=== PATIENT | female | born 1965 | race Caucasian/White ===

== ENCOUNTER 2016-07-30 17:00 | Inpatient (IN) | payer MEDICAID ==
--- NOTE | 2016-07-30 17:45 | ERNOTE ---
Integumentary HPI - Narrative Date of Service: 07/30/16 - General Presenting Symptoms: rash Time Seen by Provider: 07/30/16 17:44 Source: patient - Immun/Allergies/Home Medications Immunizations: IMMUNIZATION HX Immunizations Up to Date Yes History of Influenza Vaccine More Information Required Hx Pneumococcal Vaccination More Information Required Allergies/Adverse Reactions: Allergies Allergy/AdvReac Type Severity Reaction Status Date / Time No Known Allergies Allergy Verified 07/30/16 17:25 Home Medications: HOME MEDICATIONS Insulin Detemir [Levemir Flexpen] 50 unit SQ BID 07/18/14 [Last Taken 08/17/14] Insulin NPH Hum/Reg Insulin Hm [Humulin 70-30] 10 unit SC AC 11/02/15 [Last Taken Unknown] - History of Present Illness Date (Duration): 07/28/16 Location: Reports: lower extremity Quality: Reports: burning, other - erythema Severity: moderate Exposure: Reports: no cause identified Associated Symptoms: Reports: fever Review of Systems - Review of Systems Constitutional: Present: See HPI, fever, chills EYE: Present: no symptoms reported ENT: Present: no symptoms reported Respiratory: Present: no symptoms reported Cardiology: Present: no symptoms reported Gastrointestinal/Abdominal: Present: no symptoms reported Genitourinary: Present: no symptoms reported Musculoskeletal: Present: no symptoms reported Skin: Present: See HPI, rash Neurological: Present: no symptoms reported Endocrine: Present: no symptoms reported Hematologic/Lymphatic: Present: no symptoms reported Psych: Present: no symptoms reported - Patient's Past Medical History Patient History - Medical: Diabetes Type 1, Other - Necrotizing fasciitis; Peripheral vascular disease; Diabetic neuropathy Patient History - Cardiac/Respiratory: No pertinent hx Patient History - Cancer: Skin Patient History - Surgical Procedures: Appendectomy, , EGD, Other - Osteotomy; Skin graft; Colostomy; Uterine ablation - Social History Living Situations: home Alcohol Use: none Drug Use: none Physical Exam - Physical Exam General Appearance: Present: wd/wn, alert, moderate distress Eye Exam: Normal inspection: bilateral, PERRL: bilateral Ears, Nose, Throat: Present: normal ENT inspection, hearing grossly normal, normal pharynx Neck: Present: normal inspection, nontender Respiratory: Present: no respiratory distress, normal breath sounds, no accessory muscle use, chest nontender, lungs clear Cardiovascular/Chest: Present: regular rate, rhythm, no murmur, normal peripheral pulses Gastrointestinal/Abdominal: Present: normal bowel sounds, nontender, nondistended, soft, no organomegaly Rectal Exam: Present: deferred Back Exam: Present: normal inspection, normal range of motion Extremity Exam: Present: normal inspection, non-tender, no edema, normal range of motion Neurological Exam: Present: alert, oriented, normal mood/affect Skin Exam: Present: other - erythema LLE Lymphatic Exam: Present: no adenopathy ED Progress - Results and Orders Patient's Lab Results:: I have reviewed the patient's lab results. - Vital Signs Patient's Vital Signs:: I have reviewed the patient's vital signs. Vital Signs: Vital Signs 07/30/16 17:21 Temperature 38.0 C H Pulse Rate 98 Respiratory 14 Rate Blood Pressure 137/69 O2 Sat by Pulse 97 Oximetry - Progress/Reassessment Chief Complaint: Cellulitis Progress:: Unchanged - Transfer of Care Expected Disposition: Admit Plan - Plan Plan: Pt will need to be admitted for aggressive antibiotic treatment given her history of necrotizing fasciitis. Departure Clinical Impression: Cellulitis - Departure Disposition: [facility] Condition: Fair
[2016-07-30 17:59] LABS: Hematocrit 42.8 % (37.0-47.0); Mean Cell Volume 80.6 fl (78-100); Mean Corpuscular Hemoglobin 26.4 pg (27-31); Mean Corpuscular Hgb Conc 32.7 g/dl (32-36); Mean Platelet Volume 9.7 fl (6.0-9.5); Platelet Count 230 K/mm3 (150-450); Red Blood Count 5.31 M/mm3 (4.2-5.4); Red Cell Distribution Width 13.2 % (11.5-14.0); White Blood Count 24.4 K/mm3 (4.0-10.5)
[2016-07-30 18:03] LABS: Total Cells Counted 100
[2016-07-30 18:14] LABS: ALT 19 U/L (19-67); AST 10 U/L (0-48); Albumin * 3.8 gm/dl (3.4-5.0); Alkaline Phosphatase * 124 U/L (50-170); Anion Gap 15.8 mmol/L (6.8-13.8); BUN/Creatinine Ratio 18.5 (9.0-21.6); Bilirubin, Total 0.9 mg/dL (0.0-1.1); Blood Urea Nitrogen 20 mg/dL (3-23); Ca. Corrected For Albumin 9.8 mg/dL (8.4-10.2); Carbon Dioxide 27.6 mmol/L (24-32.6); Chloride 94 mmol/L (97-106); Glucose * 417 mg/dL (70-110); Potassium 4.4 mmol/L (3.4-4.6); Sodium 133 mmol/L (132-142); Total Protein 8.9 gm/dL (6.2-8.2)
[2016-07-30 18:28] LABS: Atypical (Reactive) Lymph 3 % (0-2); Band 1 % (0-2.0); Lymphocyte 4 % (20-51); Monocyte 8 % (0-9); Neutrophil 84 % (42-75); Neutrophil # 20.5 K/mm3 (1.3-6.0); Platelet Estimate Normal (NORMAL)
[2016-07-30 18:29] LABS: RBC Morphology Normal (NORMAL)
[2016-07-30] MEDS ORDERED: VANCOMYCIN HCL 1 GM in DEXTROSE 5 % IN WATER 250 ML IV ONE ×2 (19:20)
[2016-07-30] MEDS ORDERED: NORMAL SALINE 1,000 ML IV PRN ×2 (19:38→21:20)
--- NOTE | 2016-07-30 21:25 | HP ---
Chief Complaint - Chief Complaint Date of Service: 07/30/16 Time of Service: 21:24 Chief Complaint: Nausea, vomiting, RT leg redness & pain, chills History of Present Illness: Ms. Lyles is a 50-yr old [facility] pt who states that her PCP is Dr. Deepti Llamas in [facility]. Her PMH involves DM II, Neuropathy & Necrotizing Fasciitis. Pt reports that on Friday evening, she became ill with ' flu like symptoms' of: n/v, headaches, abd pain and diarrhea. She is unsure if she had any fevers as she never checked her temperature, but says she had chills. On Friday, she noticed a scraped area on her LT larios which was also itchy. She is uncertain how she sustained that open area. She states that she applied Bacitracin ointment on it but that seemed to worsen the itching. This morning, she noticed that the area around the scab was very red, hot and tender to touch. She then chose to come to the [facility] ER later in the afternoon. During evaluation in the ER, the UA and CXR findings were unremarkable. However, she was found to be febrile with a temp. of 38.0. Her laboratory studies showed she an elevated WBC of 24,400 with a left shift and a lactic acid of 2.1 prompting an inpatient admission for clinical signs of Sepsis. - Patient's Past Medical History Patient History - Medical: Diabetes Type 1, Diabetes Type 2, Other - Neuropathy. Patient History - Cardiac/Respiratory: No pertinent hx Patient History - Cancer: Skin Patient History - Surgical Procedures: Appendectomy, , EGD, Other - Fasciotomy of Right Thigh. LMP (females 10-50): Menopausal - Family History Mother Family History - Medical: - at 30 yr , Diabetes Type 2 Family History - Cancer: Leukemia Father Family History - Medical: , Other - Suicide. - Social History Living Situations: home Smoking Status: Former smoker Have you smoked in the past 12 months: No Do you dip or chew tobacco: No Smoking Stop Date: 07/30/10 Patient requests Smoking Cessation Consult: No Initiate information on Smoking Cessation: No Alcohol Use: none Drug Use: none Allergies/Adverse Reactions: Allergies Allergy/AdvReac Type Severity Reaction Status Date / Time No Known Allergies Allergy Verified 07/30/16 17:25 Home Medications: HOME MEDICATIONS Insulin Detemir [Levemir Flexpen] 50 unit SQ BID 07/18/14 [Last Taken 07/30/16] Insulin NPH Hum/Reg Insulin Hm [Humulin 70-30] 10 unit SC AC 11/02/15 [Last Taken 07/30/16] Exam - Exam Vital Signs: Vital Signs - Last Taken Temp 37.3 C 07/30/16 20:45 Pulse 96 07/30/16 20:45 Resp 18 07/30/16 20:45 BP 149/84 07/30/16 20:45 Pulse Ox 98 07/30/16 20:45 Diagnostic Studies: Laboratory Results WBC 24.4 K/mm3 (4.0-10.5) H 07/30/16 17:40 RBC 5.31 M/mm3 (4.2-5.4) 07/30/16 17:40 Hgb 14.0 gm/dL (12.5-16.0) 07/30/16 17:40 Hct 42.8 % (37.0-47.0) 07/30/16 17:40 MCV 80.6 fl (78-100) 07/30/16 17:40 MCH 26.4 pg (27-31) L 07/30/16 17:40 MCHC 32.7 g/dl (32-36) 07/30/16 17:40 RDW 13.2 % (11.5-14.0) 07/30/16 17:40 Plt Count 230 K/mm3 (150-450) 07/30/16 17:40 MPV 9.7 fl (6.0-9.5) H 07/30/16 17:40 Neutrophils % (Manual) 84 % (42-75) H 07/30/16 17:40 Band Neuts % (Manual) 1 % (0-2.0) 07/30/16 17:40 Lymphocytes % (Manual) 4 % (20-51) L 07/30/16 17:40 Monocytes % (Manual) 8 % (0-9) 07/30/16 17:40 Neutrophils # (Manual) 20.5 K/mm3 (1.3-6.0) H 07/30/16 17:40 Lymphocytes # (Manual) 1.0 k/mm3 (1.5-3.5) L 07/30/16 17:40 Monocytes # (Manual) 2.0 k/mm3 (0.0-1.0) H 07/30/16 17:40 Atypic/Reactive Lymphs 3 % (0-2) H 07/30/16 17:40 Platelet Estimate Normal (NORMAL) 07/30/16 17:40 RBC Morphology Normal (NORMAL) 07/30/16 17:40 Sodium 133 mmol/L (132-142) 07/30/16:40 Plasma Sodium 138 mmol/L (130-142) 07/30/16 17:40 Potassium 4.4 mmol/L (3.4-4.6) 07/30/16:40 Chloride 94 mmol/L (97-106) L 07/30/16:40 Carbon Dioxide 27.6 mmol/L (24-32.6) 07/30/16:40 Anion Gap 15.8 mmol/L (6.8-13.8) H 07/30/16 17:40 BUN 20 mg/dL (3-23) 07/30/16:40 Creatinine 1.08 mg/dL (0.4-1.4) 07/30/16:40 Est GFR (Non-Af Amer) 57 mL/min (60-130) L D 07/30/16:40 BUN/Creatinine Ratio 18.5 (9.0-21.6) 07/30/16:40 Random Glucose 417 mg/dL (70-110) H 07/30/16 17:40 Lactic Acid, Venous 2.1 mmol/L (0.4-2.0) H 07/30/16:40 Calcium 10.0 mg/dL (7.9-10.9) 07/30/16:40 Calcium Adj for Albumin 9.8 mg/dL (8.4-10.2) 07/30/16:40 Total Bilirubin 0.9 mg/dL (0.0-1.1) 07/30/16:40 AST 10 U/L (0-48) 07/30/16 17:40 ALT 19 U/L (19-67) 07/30/16 17:40 Alkaline Phosphatase 124 U/L (50-170) 07/30/16:40 C-Reactive Prot, Quant Less than 0.2 mg/dL (0.0-0.9) 07/30/16 17:40 Total Protein 8.9 gm/dL (6.2-8.2) H 07/30/16 17:40 Albumin 3.8 gm/dl (3.4-5.0) 07/30/16 17:40 Assessment/Plan - Assessment/Plan (1) Sepsis Assessment: Evidenced by SIRS Criteria - Temp, High HR, & WBC & Suspected source of infection. The CXR & UA were unremarkable. Skin examination reveals a scrapped area on LT larios with erythema & hotness on the surrounding area and this could be potential localizing source. She also has localized tenderness on two spots on her LT inner thigh which appear slightly red and raised. Blood and wound cultures are pending. Will provide early management with IVF resuscitation and initiate broad spectrum antibiotics. Monitor CBC in am. Problem: Acute (2) Cellulitis Assessment: Erythemic/inflammed area on LLE which is hot and tender to touch, with an open wound in the center. She was also febrile with a temp of 38.0. Will collect wound culture. Broad Spectrum antibiotics with Vancomycin and Zosyn appropriate for now and also bearing the fact that she also had history of necrotizing fasciitis which led to fasciotomy in February of 2015. It may be helpful to obtain an MRI of the extremity as it may aid in detection of underlying osteomyelitis. Problem: Acute (3) Diabetes mellitus Assessment: Accuchecks AC/HS. Will start on moderate dose SSI and continue Long acting insulin. Problem: Chronic Qualifiers: Diabetes mellitus type: type 2
[2016-07-30] MEDS ORDERED: INSULIN DETEMIR 100 UNITS/ML VIAL SC SCH (21:30)
[2016-07-30] MEDS ORDERED: INSULIN LISPRO 100 UNITS/ML VIAL ONE (21:31)
[2016-07-30] MEDS: HEPARIN SODIUM,PORCINE 5,000 UNITS/ML VIAL SC SCH ×2 (21:37→21:42)
[2016-07-30] MEDS: INSULIN LISPRO 100 UNITS/ML VIAL SC SCH (21:38)
[2016-07-30] MEDS: ACETAMINOPHEN 325 MG TABLET PO PRN (21:39)
[2016-07-30] MEDS: PIPERACILLIN SODIUM/TAZOBACTAM 3.375 GM in DEXTROSE 5 % IN WATER 100 ML IV SCH ×2 (22:07)
[2016-07-30 22:09] LABS: Urine Bilirubin Negative (NEGATIVE); Urine Blood 25 /ul (NEGATIVE); Urine Ketone 50 mg/dL (NEGATIVE); Urine Nitrite Negative (NEGATIVE); Urine Protein 30 mg/dL (NEGATIVE); Urine Urobilinogen Normal (NORMAL)
[2016-07-30 22:35] LABS: Urine Appearance Clear; Urine Bacteria 1+; Urine Color Yellow; Urine RBC 0-5 /hpf (0-5); Urine WBC 0-5 /hpf (0-5); Urine Yeast Few - 1+
[2016-07-31] MEDS: PIPERACILLIN SODIUM/TAZOBACTAM 3.375 GM in DEXTROSE 5 % IN WATER 100 ML IV SCH ×6 (02:11→18:42)
[2016-07-31 05:35] LABS: Hematocrit 35.7 % (37.0-47.0); Hemoglobin 11.6 gm/dL (12.5-16.0); Mean Cell Volume 81.3 fl (78-100); Mean Corpuscular Hemoglobin 26.4 pg (27-31); Mean Corpuscular Hgb Conc 32.5 g/dl (32-36); Mean Platelet Volume 9.6 fl (6.0-9.5); Platelet Count 183 K/mm3 (150-450); Red Blood Count 4.39 M/mm3 (4.2-5.4); White Blood Count 21.3 K/mm3 (4.0-10.5)
[2016-07-31] MEDS: ACETAMINOPHEN 325 MG TABLET PO PRN ×2 (05:46→12:27)
[2016-07-31 05:48] LABS: Total Cells Counted 100
[2016-07-31 05:58] LABS: BUN/Creatinine Ratio 18.3 (9.0-21.6); Calcium * 8.7 mg/dL (7.9-10.9); Carbon Dioxide 23.9 mmol/L (24-32.6); Estimated Creat Clear 79.8; Potassium 3.9 mmol/L (3.4-4.6)
[2016-07-31 06:40] LABS: Band 9 % (0-2.0); Eosinophil 1 % (0-3); Lymphocyte 7 % (20-51); Monocyte 1 % (0-9); Neutrophil 82 % (42-75); Neutrophil # 17.5 K/mm3 (1.3-6.0)
[2016-07-31 06:41] LABS: Platelet Estimate Normal (NORMAL); Toxic Granulation 2+
[2016-07-31] MEDS: INSULIN LISPRO 100 UNITS/ML VIAL SC SCH ×4 (07:13→20:08)
[2016-07-31] MEDS ORDERED: VANCOMYCIN HCL IV SCH ×2 (08:00)
[2016-07-31] MEDS ORDERED: DEXTROSE 5% IV SCH ×2 (08:00)
[2016-07-31] MEDS ORDERED: WATER IV SCH ×2 (08:00)
[2016-07-31] MEDS: VANCOMYCIN HCL 1.25 GM in DEXTROSE 5 % IN WATER 250 ML IV SCH ×4 (09:46→22:23)
[2016-07-31] MEDS: HEPARIN SODIUM,PORCINE 5,000 UNITS/ML VIAL SC SCH ×2 (09:47→20:38)
[2016-07-31] MEDS: INSULIN DETEMIR 100 UNITS/ML VIAL SC SCH ×2 (09:48→20:08)
--- NOTE | 2016-07-31 11:15 | PN ---
Subjective - Date and Time Seen Date: 07/31/16 Time: 08:00 Subjective Narrative: patient was seen today sitting up in chair ,with reports of left thigh pain that's localized in area of erythema. Pt stated a years ago she had narcotizing fasciitis on the right thigh which had presented itself in the same way. left medial leg with cellulitis that is feeling much better. She denies chills and fever. Objective - Review of Systems Generalized/Overall Review: Reports: Chills EENTM: Reports: No Symptoms Reported Respiratory: Reports: No Symptoms Reported Cardiac: Reports: No Symptoms Reported Abdominal: Reports: No Symptoms Reported Genitourinary Symptoms: Reports: No Symptoms Reported Neurological: Reports: No Symptoms Reported Skin: Reports: Other - left leg erythema Endocrine: Reports: No Symptoms Reported - Vitals Vitals: Last Vital Signs Temp 37 C 07/31/16 10:44 Pulse 84 07/31/16 10:44 Resp 18 07/31/16 10:44 BP 128/94 07/31/16 10:44 Pulse Ox 98 07/31/16 10:44 - Abnormal Lab Findings Abnormal Lab Findings: Abnormal Lab Results 07/30/16 07/30/16 07/31/16 Range/Units 20:44 22:00 05:05 WBC 21.3 H (4.0-10.5) K/mm3 Hgb 11.6 L (12.5-16.0) gm/dL Hct 35.7 L (37.0-47.0) % MCH 26.4 L (27-31) pg MPV 9.6 H (6.0-9.5) fl Neutrophils % (Manual) 82 H (42-75) % Band Neuts % (Manual) 9 H (0-2.0) % Lymphocytes % (Manual) 7 L (20-51) % Neutrophils # (Manual) 17.5 H (1.3-6.0) K/mm3 pCO2 28.7 L (32.0-45.0) mmHg HCO3 20.1 L (21.0-28.0) mmol/L Base Excess -2.5 L (-2.0-3.0) mmol/L ABG pH 7.46 H (7.35-7.45) Carbon Dioxide (24-32.6) mmol/L Anion Gap (6.8-13.8) mmol/L Random Glucose (70-110) mg/dL Urine Protein 30 H (NEGATIVE) mg/dL Urine Glucose (UA) >=1000 H (NEGATIVE) mg/dL Urine Blood 25 H (NEGATIVE) /ul Urine Bacteria 1+ H (NONE) Urine Yeast Few - 1+ H (NONE) 07/31/16 Range/Units 05:05 WBC (4.0-10.5) K/mm3 Hgb (12.5-16.0) gm/dL Hct (37.0-47.0) % MCH (27-31) pg MPV (6.0-9.5) fl Neutrophils % (Manual) (42-75) % Band Neuts % (Manual) (0-2.0) % Lymphocytes % (Manual) (20-51) % Neutrophils # (Manual) (1.3-6.0) K/mm3 pCO2 (32.0-45.0) mmHg HCO3 (21.0-28.0) mmol/L Base Excess (-2.0-3.0) mmol/L ABG pH (7.35-7.45) Carbon Dioxide 23.9 L (24-32.6) mmol/L Anion Gap 14.0 H (6.8-13.8) mmol/L Random Glucose 277 H D (70-110) mg/dL Urine Protein (NEGATIVE) mg/dL Urine Glucose (UA) (NEGATIVE) mg/dL Urine Blood (NEGATIVE) /ul Urine Bacteria (NONE) Urine Yeast (NONE) - Exam Constitutional: Present: Alert, Oriented x3, Cooperative, No distress ENT Exam: Present: normal ENT inspection Neck: Present: full range of motion Breasts: Present: Exam deferred Respiratory: Present: chest non-tender, lungs clear, normal breath sounds, no respiratory distress Cardiovascular/Chest: Present: normal peripheral pulses, regular rate, rhythm, no chest tenderness, no edema Abdomen: Present: Normal bowel sounds, soft, nontender, nondistended, no rebound tenderness /Rectal: Present: Exam deferred Extremity: Present: normal range of motion, normal capillary refill, other - left thigh localized area of erythema Skin Exam: Present: other - left leg medial aspect cellulitis, small abrasion scabbed over and surrounding area with difused erythema Lymphatic: Present: no adenopathy Neurologic: Present: oriented x 3 Appearance: Present: appropriate appearance Eye contact: Present: cooperative, good eye contact Thoughts: Present: normal thought pattern Assessment/Plan Plan Narrative: Sepsis Left medial leg cellulitis and left inner thigh erythema with pain on palpation. On adm Temp 38.0----->36.7 trending down and remain afebrile since On adm WBC 34.4-----> 21.3 trending down while on antibiotics Continue to monitor CBC in am On adm CXR & UA were unremarkable. Wound cultures no growth, blood culture still pending. Continue with IVF resuscitation and broad spectrum antibiotics. Cellulitis Left leg cellulitis warm to touch and confined areas of erythema Wound culture no growth On adm temp of 38.0 and has been afebrile since adm. Continue Vancomycin and Zosyn appropriate for now and also bearing the fact that she also had history of necrotizing fasciitis which led to fasciotomy in February of 2015. Will obtain records from outside facility. Diabetes mellitus This morning BG 277 insulin covergae given Accu-checks AC/HS. Will start on moderate dose SSI and continue Long acting insulin. Consistent carb diet Code Status: Full with restrictions VTE ppx :Heparin SQ, ambulate and out of bed for all meals - Problems/Diagnosis (1) Cellulitis Problem: Acute (2) Sepsis Problem: Acute (3) Diabetes mellitus Problem: Chronic Qualifiers: Diabetes mellitus type: type 2
[2016-08-01] MEDS: PIPERACILLIN SODIUM/TAZOBACTAM 3.375 GM in DEXTROSE 5 % IN WATER 100 ML IV SCH ×6 (02:09→19:43)
[2016-08-01 05:59] LABS: Hematocrit 33.6 % (37.0-47.0); Hemoglobin 10.7 gm/dL (12.5-16.0); Mean Cell Volume 80.6 fl (78-100); Mean Corpuscular Hemoglobin 25.7 pg (27-31); Mean Corpuscular Hgb Conc 31.8 g/dl (32-36); Mean Platelet Volume 9.3 fl (6.0-9.5); Neutrophil # 11.1 K/mm3 (1.3-6.0); Neutrophil % 75.8 % (42-75.0); Platelet Count 200 K/mm3 (150-450); Red Blood Count 4.17 M/mm3 (4.2-5.4); White Blood Count 14.6 K/mm3 (4.0-10.5)
[2016-08-01 06:15] LABS: BUN/Creatinine Ratio 16.5 (9.0-21.6); Calcium * 8.9 mg/dL (7.9-10.9); Carbon Dioxide 25.6 mmol/L (24-32.6); Estimated Creat Clear 82.8; Potassium 3.6 mmol/L (3.4-4.6)
[2016-08-01] MEDS: INSULIN LISPRO 100 UNITS/ML VIAL SC SCH ×4 (06:33→20:08)
[2016-08-01] MEDS: ACETAMINOPHEN 325 MG TABLET PO PRN (06:33)
--- NOTE | 2016-08-01 07:26 | PN ---
Subjective - Date and Time Seen Date: 08/01/16 Time: 07:22 Subjective Narrative: patient seen today AOX3 no acute distress, she denies fever, chills, cough. pt stated the tender areas to her left tight have been there for 6 months and was told by PCP that they were fat deposit. However they have never hurt this much before. Pain today has improved and only report of a heahache. left leg cellulitis improving erythema receding. Objective - Review of Systems Generalized/Overall Review: Reports: No Symptoms Reported EENTM: Reports: No Symptoms Reported Respiratory: Reports: No Symptoms Reported Cardiac: Reports: No Symptoms Reported Abdominal: Reports: No Symptoms Reported Genitourinary Symptoms: Reports: No Symptoms Reported Musculoskeletal Complaints: Reports: No Symptoms Reported Neurological: Reports: Headache Skin: Reports: Other - left leg cellulitis improving, left thigh tender area improving Endocrine: Reports: No Symptoms Reported - Vitals Vitals: Last Vital Signs Temp 36.5 C 08/01/16 03:40 Pulse 71 08/01/16 03:40 Resp 18 08/01/16 03:40 BP 103/59 08/01/16 03:40 Pulse Ox 95 08/01/16 03:40 - Abnormal Lab Findings Abnormal Lab Findings: Abnormal Lab Results 07/31/16 08/01/16 08/01/16 Range/Units 13:28 05:10 05:10 WBC 14.6 H D (4.0-10.5) K/mm3 RBC 4.17 L (4.2-5.4) M/mm3 Hgb 10.7 L (12.5-16.0) gm/dL Hct 33.6 L (37.0-47.0) % MCH 25.7 L (27-31) pg MCHC 31.8 L (32-36) g/dl Immature Gran % (Auto) 0.90 H (0.001-0.429) % Immature Gran # (Auto) 0.13 H (0.000-0.0310) K/mm3 Neutrophils % 75.8 H (42-75.0) % Lymphocytes % 12.0 L (20-51) % Monocytes % 9.2 H (0.0-9) % Neutrophils # 11.1 H (1.3-6.0) K/mm3 Monocytes # 1.4 H (0.0-1.0) k/mm3 ESR 57 H (0-15) mm/hr Random Glucose 126 H D (70-110) mg/dL - Exam Constitutional: Present: Alert, Oriented x3, Cooperative, Well developed, No distress, Middle aged Neck: Present: full range of motion Breasts: Present: Exam deferred Respiratory: Present: chest non-tender, lungs clear, normal breath sounds, no respiratory distress Cardiovascular/Chest: Present: normal peripheral pulses, regular rate, rhythm, no chest tenderness, no edema Abdomen: Present: Normal bowel sounds, soft, nontender, nondistended, no rebound tenderness /Rectal: Present: Exam deferred Extremity: Present: normal range of motion, non-tender, normal inspection, no calf tenderness Skin Exam: Present: other - left leg cellulitis improving, left thigh erythema remain the same pain improving Neurologic: Present: oriented x 3 Appearance: Present: appropriate appearance Eye contact: Present: cooperative, good eye contact Thoughts: Present: normal thought pattern Assessment/Plan Plan Narrative: Cellulitis- Improving Left leg cellulitis warm to touch and confined areas of erythema- improving Wound culture no growth Pt has been afebrile since adm. Continue Vancomycin and Zosyn appropriate for now and also bearing the fact that she also had history of necrotizing fasciitis which led to fasciotomy in February of 2015. Still awaiting records from outside facility. Venous duplex thigh: no DVT/Superficial thrombophelbitis but possible fat necrosis, inflammation of early hematoma formation. Her leg Xray showed no subq emphysema. Her thigh xray showed questionable gas , correlate clinically. She is covered for anaerobes. Pt is improving no need for MRI Sepsis Left medial leg cellulitis and left inner thigh erythema with pain on palpation. - improving Pt remain afebrile since adm On adm WBC 34.4-----> 21.3 ---->14.6 improving while on antbx Continue to monitor CBC in am On adm CXR & UA were unremarkable. Wound cultures no growth, blood culture no growth Continue with IVF resuscitation and broad spectrum antibiotics. Diabetes mellitus- stable This morning BG 126 Accu-checks AC/HS. Continue moderate dose SSI and continue Long acting insulin. Consistent carb diet Code Status: Full with restrictions VTE ppx :Heparin SQ, ambulate and out of bed for all meals - Problems/Diagnosis (1) Cellulitis Problem: Acute (2) Sepsis Problem: Acute (3) Diabetes mellitus Problem: Chronic Qualifiers: Diabetes mellitus type: type 2
[2016-08-01] MEDS: VANCOMYCIN HCL 1.25 GM in DEXTROSE 5 % IN WATER 250 ML IV SCH ×4 (09:01→23:57)
[2016-08-01] MEDS: INSULIN DETEMIR 100 UNITS/ML VIAL SC SCH ×2 (09:02→20:10)
[2016-08-01] MEDS: HEPARIN SODIUM,PORCINE 5,000 UNITS/ML VIAL SC SCH ×2 (09:02→21:27)
[2016-08-01] MEDS: KETOROLAC TROMETHAMINE 15 MG/ML VIAL IV PRN (21:27)
[2016-08-01] MEDS: MUPIROCIN 22 APPL TUBE TP SCH (21:40)
[2016-08-02] MEDS: PIPERACILLIN SODIUM/TAZOBACTAM 3.375 GM in DEXTROSE 5 % IN WATER 100 ML IV SCH ×6 (02:00→19:33)
[2016-08-02] MEDS: INSULIN LISPRO 100 UNITS/ML VIAL SC SCH ×4 (06:35→21:05)
[2016-08-02] MEDS ORDERED: VANCOMYCIN HCL LEVEL XX ONE (07:30)
[2016-08-02 07:41] LABS: Hematocrit 32.2 % (37.0-47.0); Hemoglobin 10.3 gm/dL (12.5-16.0); Mean Cell Volume 82.1 fl (78-100); Mean Corpuscular Hemoglobin 26.3 pg (27-31); Mean Platelet Volume 9.5 fl (6.0-9.5); Neutrophil # 9.9 K/mm3 (1.3-6.0); Neutrophil % 75.8 % (42-75.0); Platelet Count 204 K/mm3 (150-450); Red Blood Count 3.92 M/mm3 (4.2-5.4); White Blood Count 13.1 K/mm3 (4.0-10.5)
[2016-08-02 07:49] LABS: BUN/Creatinine Ratio 23.7 (9.0-21.6); Calcium * 8.9 mg/dL (7.9-10.9); Carbon Dioxide 27.9 mmol/L (24-32.6); Estimated Creat Clear 70.4; Potassium 3.9 mmol/L (3.4-4.6)
--- NOTE | 2016-08-02 08:05 | PN ---
Subjective - Date and Time Seen Date: 08/02/16 Time: 07:59 Subjective Narrative: Patient seen today stated her leg and thigh doing much better, erythema is almost gone. Denies fever, chills or cough. she report crusting and small bullous impetigo to lower lip. Objective - Review of Systems Generalized/Overall Review: Reports: No Symptoms Reported EENTM: Reports: No Symptoms Reported Respiratory: Reports: No Symptoms Reported Cardiac: Reports: No Symptoms Reported Abdominal: Reports: No Symptoms Reported Genitourinary Symptoms: Reports: No Symptoms Reported Musculoskeletal Complaints: Reports: No Symptoms Reported Neurological: Reports: No Symptoms Reported Skin: Reports: Other - left leg erythema, cellulitis resolving Endocrine: Reports: No Symptoms Reported - Vitals Vitals: Last Vital Signs Temp 37 C 08/02/16 07:02 Pulse 73 08/02/16 07:02 Resp 18 08/02/16 07:02 BP 108/73 08/02/16 07:02 Pulse Ox 100 08/02/16 07:02 - Abnormal Lab Findings Abnormal Lab Findings: Abnormal Lab Results 08/02/16 08/02/16 Range/Units 07:25 07:25 WBC 13.1 H (4.0-10.5) K/mm3 RBC 3.92 L (4.2-5.4) M/mm3 Hgb 10.3 L (12.5-16.0) gm/dL Hct 32.2 L (37.0-47.0) % MCH 26.3 L (27-31) pg Immature Gran % (Auto) 1.30 H (0.001-0.429) % Immature Gran # (Auto) 0.17 H (0.000-0.0310) K/mm3 Neutrophils % 75.8 H (42-75.0) % Lymphocytes % 12.3 L (20-51) % Neutrophils # 9.9 H (1.3-6.0) K/mm3 BUN/Creatinine Ratio 23.7 H (9.0-21.6) - Exam Constitutional: Present: Alert, Oriented x3, Cooperative, Well developed, Well nourished, No distress ENT Exam: Present: moist mucous membranes, other - bullous impetigo Breasts: Present: Exam deferred Respiratory: Present: chest non-tender, lungs clear, normal breath sounds, no respiratory distress Cardiovascular/Chest: Present: normal peripheral pulses, regular rate, rhythm, no chest tenderness, no edema Abdomen: Present: Normal bowel sounds, soft, nontender, nondistended, no rebound tenderness /Rectal: Present: Exam deferred Extremity: Present: normal range of motion, non-tender, normal inspection, no pedal edema, no calf tenderness Skin Exam: Present: other - left leg cellulitis resolving Neurologic: Present: oriented x 3 Eye contact: Present: cooperative, good eye contact Thoughts: Present: normal thought pattern Assessment/Plan Plan Narrative: Cellulitis- Improving Left leg cellulitis with confined areas of erythema- improving Wound culture Beta hemolytic strep, pending sensitivity, could possible be her normal [place]. Pt has been afebrile since adm. Continue Vancomycin and Zosyn appropriate for now and also bearing the fact that she also had history of necrotizing fasciitis which led to fasciotomy in February of 2015. Still awaiting records from outside facility. Venous duplex thigh: no DVT/Superficial thrombophelbitis but possible fat necrosis, inflammation of early hematoma formation. Her leg Xray showed no subq emphysema. Her thigh xray showed questionable gas , correlate clinically. She is covered for anaerobes. Pt is improving no need for MRI Bullous impetigo vs herpes simplex Pt report small fluid filled crusted pimples to lower lip Bactroban TID was started overnight Diabetes mellitus- stable This morning BG 106 Accu-checks AC/HS. Continue moderate dose SSI and continue Long acting insulin. Consistent carb diet Sepsis- Resolved Left medial leg cellulitis and left inner thigh erythema with pain on palpation. - improving Pt remain afebrile since adm On adm WBC 34.4-----> 21.3 ---->14.6----->13.1 continue to improve Continue to monitor CBC in am On adm CXR & UA were unremarkable. Continue broad spectrum antibiotics. Code Status: Full with restrictions VTE ppx :Heparin SQ, ambulate and out of bed for all meals Anticipating DC tomorrow with oral 2nd gen cephalosporin - Problems/Diagnosis (1) Cellulitis Problem: Acute (2) Sepsis Problem: Resolved (3) Diabetes mellitus Problem: Chronic Qualifiers: Diabetes mellitus type: type 2 (4) Bullous impetigo Problem: Acute
[2016-08-02] MEDS: MUPIROCIN 22 APPL TUBE TP SCH ×3 (09:17→16:05)
[2016-08-02] MEDS: INSULIN DETEMIR 100 UNITS/ML VIAL SC SCH ×2 (09:23→21:07)
[2016-08-02] MEDS: VANCOMYCIN HCL 1.25 GM in DEXTROSE 5 % IN WATER 250 ML IV SCH ×2 (10:14)
[2016-08-02] MEDS: HEPARIN SODIUM,PORCINE 5,000 UNITS/ML VIAL SC SCH ×2 (10:15→21:08)
[2016-08-02] MEDS: KETOROLAC TROMETHAMINE 15 MG/ML VIAL IV PRN (10:22)
--- NOTE | 2016-08-02 23:11 | OR ---
Anesthesia Procedure Note - Anesthesia Procedure Note Narrative: Vital Signs - Last Taken Temp 36.6 C 08/02/16 22:18 Pulse 82 08/02/16 22:18 Resp 18 08/02/16 22:18 BP 134/81 08/02/16 22:18 Pulse Ox 99 08/02/16 22:18 O2 Oxygen Delivery Method Room Air 08/02/16 23:09 ANESTHESIA PROCEDURE NOTE Date of procedure: 08/02/2016. Time of procedure: 2229. Performed by: Vinicio Foster CRNA [place]: None . Preprocedure diagnosis: Left lower leg cellulitis. Difficult IV access. Post procedure diagnosis: Same. Procedure: IV start Indications: Difficult IV access. Findings: 22-gauge Angiocath IV started in left forearm. EBL: Minimal. Fluids: N/A. Specimen: N/A. Post procedure condition: The patient tolerated the procedure well. No complications were noted. Thank you for this consultation Vinicio Foster CRNA
[2016-08-03] MEDS: VANCOMYCIN HCL 1.25 GM in DEXTROSE 5 % IN WATER 250 ML IV SCH ×2 (01:36)
[2016-08-03] MEDS: PIPERACILLIN SODIUM/TAZOBACTAM 3.375 GM in DEXTROSE 5 % IN WATER 100 ML IV SCH ×4 (03:41→10:03)
[2016-08-03 05:13] LABS: Hematocrit 32.1 % (37.0-47.0); Hemoglobin 10.2 gm/dL (12.5-16.0); Mean Cell Volume 82.9 fl (78-100); Mean Corpuscular Hemoglobin 26.4 pg (27-31); Mean Corpuscular Hgb Conc 31.8 g/dl (32-36); Mean Platelet Volume 9.4 fl (6.0-9.5); Neutrophil # 9.6 K/mm3 (1.3-6.0); Neutrophil % 76.2 % (42-75.0); Platelet Count 224 K/mm3 (150-450); Red Blood Count 3.87 M/mm3 (4.2-5.4); Red Cell Distribution Width 13.1 % (11.5-14.0); White Blood Count 12.6 K/mm3 (4.0-10.5)
[2016-08-03 05:28] LABS: Anion Gap 12.2 mmol/L (6.8-13.8); BUN/Creatinine Ratio 18.3 (9.0-21.6); Calcium * 8.9 mg/dL (7.9-10.9); Carbon Dioxide 25.9 mmol/L (24-32.6); Estimated Creat Clear 70.4; Potassium 4.1 mmol/L (3.4-4.6)
--- NOTE | 2016-08-03 06:19 | PN ---
Subjective - Date and Time Seen Date: 08/03/16 Time: 06:12 Subjective Narrative: Ms. Lyles had no acute events overnight. Swelling, Redness and Pain on LT foot has significantly improved. Nursing reports difficult IV access. She feels a lot better and eager to go home. Objective - Vitals Vitals: Last Vital Signs Temp 36.7 C 08/03/16 02:00 Pulse 75 08/03/16 02:00 Resp 16 08/03/16 02:00 BP 97/56 08/03/16 02:00 Pulse Ox 95 08/03/16 02:00 - Abnormal Lab Findings Abnormal Lab Findings: Abnormal Lab Results 08/02/16 08/02/16 08/03/16 Range/Units 07:25 07:25 05:10 WBC 13.1 H 12.6 H (4.0-10.5) K/mm3 RBC 3.92 L 3.87 L (4.2-5.4) M/mm3 Hgb 10.3 L 10.2 L (12.5-16.0) gm/dL Hct 32.2 L 32.1 L (37.0-47.0) % MCH 26.3 L 26.4 L (27-31) pg MCHC 31.8 L (32-36) g/dl Immature Gran % (Auto) 1.30 H 2.00 H (0.001-0.429) % Immature Gran # (Auto) 0.17 H 0.25 H (0.000-0.0310) K/mm3 Neutrophils % 75.8 H 76.2 H (42-75.0) % Lymphocytes % 12.3 L 11.8 L (20-51) % Neutrophils # 9.9 H 9.6 H (1.3-6.0) K/mm3 BUN/Creatinine Ratio 23.7 H (9.0-21.6) Random Glucose (70-110) mg/dL 08/03/16 Range/Units 05:10 WBC (4.0-10.5) K/mm3 RBC (4.2-5.4) M/mm3 Hgb (12.5-16.0) gm/dL Hct (37.0-47.0) % MCH (27-31) pg MCHC (32-36) g/dl Immature Gran % (Auto) (0.001-0.429) % Immature Gran # (Auto) (0.000-0.0310) K/mm3 Neutrophils % (42-75.0) % Lymphocytes % (20-51) % Neutrophils # (1.3-6.0) K/mm3 BUN/Creatinine Ratio (9.0-21.6) Random Glucose 211 H D (70-110) mg/dL - Exam Constitutional: Present: Alert, Oriented x3, No distress ENT Exam: Present: normal ENT inspection, hearing grossly normal, moist mucous membranes, other - Lesions on mouth Neck: Present: full range of motion, supple, normal inspection Breasts: Present: Exam deferred Respiratory: Present: lungs clear, no accessory muscle use, No wheezing Cardiovascular/Chest: Present: regular rate, rhythm, no murmur Abdomen: Present: Normal bowel sounds, soft, nontender /Rectal: Present: Exam deferred Extremity: Present: non-tender, normal inspection, no pedal edema Skin Exam: Present: warm/dry, no cyanosis Lymphatic: Present: no adenopathy Neurologic: Present: no motor/sensory deficits, alert, normal mood/affect, oriented x 3. Absent: dizzy/light-headedness Appearance: Present: appropriate appearance, appropriate insight Eye contact: Present: cooperative, good eye contact, normal speech Assessment/Plan - Problems/Diagnosis (1) Sepsis Problem: Resolved Narrative: Treated according to Sepsis Protocol and is now improved. LT Leg cellulitis with a lesion/scabbed wound in the center was the potential localizing course of infection. The wound culture results shows growth of Group A/Streptococcus Pyogenes which is normally linked to Necrotizing Fasciitis. 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 She has been receiving treatment with Zosyn & Vancomycin. S. pyogenes is still widely susceptible to penicillin. Consider stopping the Vancomycin as preliminary blood cultures shows no growth of any organism and we have a known causative organism from the wound culture. The wound/cellulitis has on LT leg has shown significant improvement. There is no erythema, and the swelling and tenderness on the extremity has reduced. The WBC even though improving is slowly trending down. Could benefit from additional 1-2 days of IV antibiotics. There is limited data on Optimal duration of the S. Pyogenes but in general Ax can be continued for another 14 days. Consider PCN & Clindamycin, or oral cephalosporin at discharge. Consult ID? (2) Bullous impetigo Problem: Acute Narrative: Lesion noted on mouth. Started on Mupirocin. (3) Cellulitis Problem: Resolved Qualifiers: Site of cellulitis of extremity: lower extremity Laterality: left (4) Diabetes mellitus Problem: Chronic Qualifiers: Diabetes mellitus type: type 2
[2016-08-03] MEDS: INSULIN LISPRO 100 UNITS/ML VIAL SC SCH ×4 (07:21→20:18)
[2016-08-03] MEDS: MUPIROCIN 22 APPL TUBE TP SCH ×4 (08:20→20:16)
[2016-08-03] MEDS: HEPARIN SODIUM,PORCINE 5,000 UNITS/ML VIAL SC SCH ×2 (08:37→20:33)
[2016-08-03] MEDS: INSULIN DETEMIR 100 UNITS/ML VIAL SC SCH ×2 (08:43→20:20)
[2016-08-03] MEDS: CLINDAMYCIN PHOSPHATE 900 MG in DEXTROSE 5 % IN WATER 100 ML IV SCH ×4 (10:59→18:14)
[2016-08-03] MEDS: PENICILLIN G POTASSIUM 2.5 MILLIONUNT in DEXTROSE 5 % IN WATER 100 ML IV SCH ×6 (11:40→18:56)
[2016-08-03] MEDS ORDERED: VANCOMYCIN HCL 1.25 GM in DEXTROSE 5 % IN WATER 250 ML IV SCH ×2 (14:00)
[2016-08-03] MEDS: KETOROLAC TROMETHAMINE 15 MG/ML VIAL IV PRN (18:55)
[2016-08-04] MEDS: PENICILLIN G POTASSIUM 2.5 MILLIONUNT in DEXTROSE 5 % IN WATER 100 ML IV SCH ×14 (00:29→22:43)
[2016-08-04] MEDS: CLINDAMYCIN PHOSPHATE 900 MG in DEXTROSE 5 % IN WATER 100 ML IV SCH ×6 (03:01→18:53)
[2016-08-04 06:08] LABS: Hematocrit 30.9 % (37.0-47.0); Hemoglobin 9.9 gm/dL (12.5-16.0); Mean Cell Volume 82.6 fl (78-100); Mean Corpuscular Hemoglobin 26.5 pg (27-31); Mean Platelet Volume 9.6 fl (6.0-9.5); Neutrophil # 7.6 K/mm3 (1.3-6.0); Neutrophil % 69.6 % (42-75.0); Platelet Count 240 K/mm3 (150-450); Red Blood Count 3.74 M/mm3 (4.2-5.4); Red Cell Distribution Width 13.1 % (11.5-14.0); White Blood Count 10.9 K/mm3 (4.0-10.5)
[2016-08-04 06:31] LABS: Anion Gap 11.3 mmol/L (6.8-13.8); BUN/Creatinine Ratio 22.5 (9.0-21.6); Calcium * 9.1 mg/dL (7.9-10.9); Estimated Creat Clear 72.7; Potassium 4.3 mmol/L (3.4-4.6)
--- NOTE | 2016-08-04 06:48 | PN ---
Subjective - Date and Time Seen Date: 08/04/16 Time: 06:42 Subjective Narrative: Ms. Lyles feels much better this morning. The lesions on mouth are improving and crusting over. The pain on LT foot and redness has also improved. Difficult IV access remains a concern to her. No other acute events overnight. Objective - Vitals Vitals: Last Vital Signs Temp 36.6 C 08/04/16 06:07 Pulse 66 08/04/16 06:07 Resp 16 08/04/16 06:07 BP 109/72 08/04/16 06:07 Pulse Ox 97 08/04/16 06:07 - Abnormal Lab Findings Abnormal Lab Findings: Abnormal Lab Results 08/04/16 08/04/16 Range/Units 04:44 04:44 WBC 10.9 H (4.0-10.5) K/mm3 RBC 3.74 L (4.2-5.4) M/mm3 Hgb 9.9 L (12.5-16.0) gm/dL Hct 30.9 L (37.0-47.0) % MCH 26.5 L (27-31) pg MPV 9.6 H (6.0-9.5) fl Immature Gran % (Auto) 4.40 H (0.001-0.429) % Immature Gran # (Auto) 0.48 H (0.000-0.0310) K/mm3 Lymphocytes % 15.1 L (20-51) % Eosinophils % 3.6 H (0.0-3.0) % Neutrophils # 7.6 H (1.3-6.0) K/mm3 BUN/Creatinine Ratio 22.5 H (9.0-21.6) Random Glucose 191 H (70-110) mg/dL - Exam Constitutional: Present: Alert, Oriented x3, No distress ENT Exam: Present: normal ENT inspection, hearing grossly normal, other - lesions on mouth- crusting Neck: Present: full range of motion, supple, normal inspection Breasts: Present: Exam deferred Respiratory: Present: lungs clear, no accessory muscle use, No wheezing Cardiovascular/Chest: Present: regular rate, rhythm, no chest tenderness, no murmur Abdomen: Present: Normal bowel sounds, soft, nontender /Rectal: Present: Exam deferred Extremity: Present: non-tender, normal inspection, no pedal edema Skin Exam: Present: warm/dry, no cyanosis, other Lymphatic: Present: no adenopathy Neurologic: Present: no motor/sensory deficits, alert, oriented x 3 Appearance: Present: appropriate appearance, appropriate insight Eye contact: Present: cooperative, good eye contact, normal speech Thoughts: Present: normal thought pattern, no apparent hallucination Assessment/Plan - Problems/Diagnosis (1) Sepsis Problem: Resolved Narrative: Treated according to Sepsis Protocol and is now improved. LT Leg cellulitis with a lesion/scabbed wound in the center was the potential localizing course of infection. The wound culture results showed growth of Group A/Streptococcus Pyogenes which is normally linked to Necrotizing Fasciitis. 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 She received treatment with Zosyn & Vancomycin until cultures resulted. S. pyogenes is still widely susceptible to penicillin. Vancomycin & Zosyn stopped and started on PCN & Clindamycin The wound/cellulitis has on LT leg has shown significant improvement. There is no erythema, and the swelling and tenderness on the extremity has reduced. The WBC even though improving is slowly trending down. This am 10.9. 1 more day of IV antibiotics. There is limited data on Optimal duration of the S. Pyogenes but in general Ax can be continued for another 14 days. Ax can be switched to orals incase of difficult IV access. Plan to Discharge tomorrow. Consult ID? (2) Bullous impetigo Problem: Acute Narrative: Lesion appeared on mouth during second day of hospitalization. Started on Mupirocin. They are healing well now. (3) Cellulitis Problem: Resolved Qualifiers: Site of cellulitis of extremity: lower extremity Laterality: left (4) Diabetes mellitus Problem: Chronic Qualifiers: Diabetes mellitus type: type 2
[2016-08-04] MEDS: INSULIN LISPRO 100 UNITS/ML VIAL SC SCH ×4 (07:18→20:22)
[2016-08-04] MEDS: HEPARIN SODIUM,PORCINE 5,000 UNITS/ML VIAL SC SCH ×2 (08:56→21:07)
[2016-08-04] MEDS: MUPIROCIN 22 APPL TUBE TP SCH ×4 (08:57→20:18)
[2016-08-04] MEDS: INSULIN DETEMIR 100 UNITS/ML VIAL SC SCH ×2 (08:57→20:21)
[2016-08-05] MEDS ORDERED: CLINDAMYCIN HCL 150 MG CAPSULE PO SCH ×2 (03:15→06:59)
[2016-08-05] MEDS ORDERED: PENICILLIN V POTASSIUM 250 MG/5 ML PO SCH (03:15)
[2016-08-05] MEDS: CLINDAMYCIN PHOSPHATE 900 MG in DEXTROSE 5 % IN WATER 100 ML IV SCH ×2 (03:27)
[2016-08-05 06:19] LABS: Hematocrit 33.3 % (37.0-47.0); Hemoglobin 10.7 gm/dL (12.5-16.0); Mean Cell Volume 82.4 fl (78-100); Mean Corpuscular Hemoglobin 26.5 pg (27-31); Mean Corpuscular Hgb Conc 32.1 g/dl (32-36); Platelet Count 283 K/mm3 (150-450); Red Blood Count 4.04 M/mm3 (4.2-5.4); Red Cell Distribution Width 13.1 % (11.5-14.0); White Blood Count 13.7 K/mm3 (4.0-10.5)
[2016-08-05 06:21] LABS: Total Cells Counted 100
[2016-08-05 06:29] LABS: Anion Gap 15.2 mmol/L (6.8-13.8); Calcium * 9.2 mg/dL (7.9-10.9); Carbon Dioxide 25.2 mmol/L (24-32.6); Estimated Creat Clear 73.5; Potassium 4.4 mmol/L (3.4-4.6)
[2016-08-05] MEDS: INSULIN LISPRO 100 UNITS/ML VIAL SC SCH ×4 (06:53→21:07)
[2016-08-05 07:00] LABS: Band 13 % (0-2.0); Eosinophil 3 % (0-3); Lymphocyte 16 % (20-51); Monocyte 5 % (0-9); Neutrophil 63 % (42-75); Neutrophil # 8.6 K/mm3 (1.3-6.0)
[2016-08-05 07:01] LABS: Dohle Bodies 1+; Platelet Estimate Normal (NORMAL); RBC Morphology Normal (NORMAL)
[2016-08-05] MEDS: HEPARIN SODIUM,PORCINE 5,000 UNITS/ML VIAL SC SCH ×2 (08:31→21:02)
[2016-08-05] MEDS: MUPIROCIN 22 APPL TUBE TP SCH ×4 (08:32→21:02)
[2016-08-05] MEDS: CLINDAMYCIN HCL 150 MG CAPSULE PO SCH ×3 (08:35→16:29)
[2016-08-05] MEDS: INSULIN DETEMIR 100 UNITS/ML VIAL SC SCH ×2 (08:36→21:06)
--- NOTE | 2016-08-05 08:38 | PN ---
Subjective - Date and Time Seen Date: 08/05/16 Time: 08:26 Subjective Narrative: Patient was seen today sitting up in chair eager to be DC home and continue with oral antibiotics, she denies fever, chills, cough or increased areas of erythema to left lower leg and leg thigh redness has resolved. Objective - Review of Systems Generalized/Overall Review: Reports: No Symptoms Reported EENTM: Reports: No Symptoms Reported Respiratory: Reports: No Symptoms Reported Cardiac: Reports: No Symptoms Reported Abdominal: Reports: No Symptoms Reported Genitourinary Symptoms: Reports: No Symptoms Reported Musculoskeletal Complaints: Reports: No Symptoms Reported Neurological: Reports: No Symptoms Reported Skin: Reports: Other - left leg cellulitis improved with small patch area of erythyema at left side of leg - Vitals Vitals: Last Vital Signs Temp 36.7 C 08/05/16 06:31 Pulse 70 08/05/16 06:31 Resp 16 08/05/16 06:31 BP 103/56 08/05/16 06:31 Pulse Ox 97 08/05/16 06:31 - Abnormal Lab Findings Abnormal Lab Findings: Abnormal Lab Results 08/05/16 08/05/16 Range/Units 05:50 05:50 WBC 13.7 H D (4.0-10.5) K/mm3 RBC 4.04 L (4.2-5.4) M/mm3 Hgb 10.7 L (12.5-16.0) gm/dL Hct 33.3 L (37.0-47.0) % MCH 26.5 L (27-31) pg Band Neuts % (Manual) 13 H (0-2.0) % Lymphocytes % (Manual) 16 L (20-51) % Neutrophils # (Manual) 8.6 H (1.3-6.0) K/mm3 Anion Gap 15.2 H (6.8-13.8) mmol/L Random Glucose 130 H D (70-110) mg/dL - Exam Constitutional: Present: Alert, Oriented x3, Cooperative, Well developed, No distress, Middle aged ENT Exam: Present: normal ENT inspection Neck: Present: full range of motion Breasts: Present: Exam deferred Respiratory: Present: chest non-tender, lungs clear, normal breath sounds, no respiratory distress Cardiovascular/Chest: Present: normal peripheral pulses, regular rate, rhythm, no chest tenderness, no edema Abdomen: Present: Normal bowel sounds, soft, nontender, nondistended, no rebound tenderness /Rectal: Present: Exam deferred Extremity: Present: normal range of motion, non-tender, normal inspection, no pedal edema, no calf tenderness, other - left leg cellulitis almost resolved Skin Exam: Present: other - left leg cellulitis improved, small patch area of erythwma at back of left leg Lymphatic: Present: no adenopathy Neurologic: Present: oriented x 3 Appearance: Present: appropriate appearance Eye contact: Present: cooperative Thoughts: Present: normal thought pattern Assessment/Plan Plan Narrative: (1) Sepsis Problem: Resolved Narrative: Treated according to Sepsis Protocol and is now improved. LT Leg cellulitis with a lesion/scabbed wound in the center was the potential localizing course of infection. The wound culture results showed growth of Group A/Streptococcus Pyogenes which is normally linked to Necrotizing Fasciitis. 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 She received treatment with Zosyn & Vancomycin until cultures resulted. S. pyogenes is still widely susceptible to penicillin. Vancomycin & Zosyn stopped and started on PCN & Clindamycin. Clindamycin was DC today. will continue with penicillin V 500mg oral QID and repeat CBC in am. The wound/cellulitis has on LT leg has shown significant improvement. There is no erythema, and the swelling and tenderness on the extremity has reduced. Today WBC 13.7 will repeat in am (2) Bullous impetigo Problem: Acute Narrative: Lesion appeared on mouth during second day of hospitalization. Started on Mupirocin. They are healing well now. (3) Cellulitis Problem: Resolved (4) Diabetes mellitus Consistent carb diet Continue with [place] BID - Problems/Diagnosis (1) Cellulitis Problem: Resolved Qualifiers: Site of cellulitis of extremity: lower extremity Laterality: left (2) Sepsis Problem: Resolved (3) Diabetes mellitus Problem: Chronic Qualifiers: Diabetes mellitus type: type 2 (4) Bullous impetigo Problem: Acute
[2016-08-05] MEDS ORDERED: PENICILLIN V POTASSIUM 500 MG TABLET PO SCH (10:00)
[2016-08-05] MEDS ORDERED: PENICILLIN V POTASSIUM 250 MG TABLET PO SCH (10:00)
[2016-08-05] MEDS: PENICILLIN V POTASSIUM 250 MG/5 ML PO SCH ×3 (11:07→21:13)
[2016-08-06] MEDS: PENICILLIN V POTASSIUM 250 MG/5 ML PO SCH ×3 (03:29→15:21)
[2016-08-06 06:27] LABS: Hematocrit 35.1 % (37.0-47.0); Hemoglobin 11.1 gm/dL (12.5-16.0); Mean Cell Volume 82.2 fl (78-100); Mean Corpuscular Hgb Conc 31.6 g/dl (32-36); Mean Platelet Volume 8.9 fl (6.0-9.5); Platelet Count 298 K/mm3 (150-450); Red Blood Count 4.27 M/mm3 (4.2-5.4); Red Cell Distribution Width 13.3 % (11.5-14.0); White Blood Count 14.9 K/mm3 (4.0-10.5)
[2016-08-06 06:31] LABS: Total Cells Counted 100
[2016-08-06 06:48] LABS: Atypical (Reactive) Lymph 1 % (0-2); Band 8 % (0-2.0); Eosinophil 2 % (0-3); Immature Granulocyte 3 (0-1); Lymphocyte 14 % (20-51); Monocyte 5 % (0-9); Neutrophil 67 % (42-75); Platelet Estimate Normal (NORMAL)
[2016-08-06 06:49] LABS: RBC Morphology Normal (NORMAL)
[2016-08-06] MEDS: INSULIN LISPRO 100 UNITS/ML VIAL SC SCH ×4 (06:51→20:08)
--- NOTE | 2016-08-06 08:45 | PN ---
Progess Note - Interim Narrative: 08/06/16 08:43 WBC is up to 14.9. Tender tibia on deep pressure- probably beginning OM. Will do MRI. Will talk to Camila [facility].repat BC, ESR, CRP.
[2016-08-06] MEDS: CLINDAMYCIN HCL 150 MG CAPSULE PO SCH ×3 (08:59→17:59)
[2016-08-06] MEDS: MUPIROCIN 22 APPL TUBE TP SCH ×4 (09:00→20:08)
[2016-08-06] MEDS: INSULIN DETEMIR 100 UNITS/ML VIAL SC SCH ×2 (09:01→20:09)
[2016-08-06] MEDS: HEPARIN SODIUM,PORCINE 5,000 UNITS/ML VIAL SC SCH (09:07)
[2016-08-06] MEDS: ACETAMINOPHEN 325 MG TABLET PO PRN (13:51)
--- NOTE | 2016-08-06 17:13 | PN ---
Subjective - Date and Time Seen Date: 08/06/16 Time: 17:09 Subjective Narrative: Patient is afebrile but she feels her leg is a little bit redder today than yesterday. Her WBC is 14.9 Objective - Review of Systems Generalized/Overall Review: Denies: Chills, Fever EENTM: Reports: No Symptoms Reported Respiratory: Denies: Cough, Shortness of Breath, Wheezing Cardiac: Denies: Chest Pain, Edema, Palpitations Abdominal: Denies: Nausea, Vomiting Genitourinary Symptoms: Denies: Urgency, Frequency Musculoskeletal Complaints: Reports: Other - positive pain on her leg when palpated - Vitals Vitals: Last Vital Signs Temp 36.4 C L 08/06/16 14:32 Pulse 73 08/06/16 14:32 Resp 20 08/06/16 14:32 BP 95/66 08/06/16 14:32 Pulse Ox 98 08/06/16 14:32 - Abnormal Lab Findings Abnormal Lab Findings: Abnormal Lab Results 08/06/16 08/06/16 08/06/16 Range/Units 05:30 05:30 05:30 WBC 14.9 H (4.0-10.5) K/mm3 Hgb 11.1 L (12.5-16.0) gm/dL Hct 35.1 L (37.0-47.0) % MCH 26.0 L (27-31) pg MCHC 31.6 L (32-36) g/dl Band Neuts % (Manual) 8 H (0-2.0) % Lymphocytes % (Manual) 14 L (20-51) % Immature Granulocytes 3 H (0-1) Neutrophils # (Manual) 10.0 H (1.3-6.0) K/mm3 ESR 78 H (0-15) mm/hr C-Reactive Prot, Quant 1.9 H (0.0-0.9) mg/dL - Exam Constitutional: Present: Alert, Oriented x3, Cooperative ENT Exam: Present: hearing grossly normal Neck: Present: supple Breasts: Present: Exam deferred Respiratory: Present: lungs clear, No rales, No wheezing Cardiovascular/Chest: Present: regular rate, rhythm, no JVD, no murmur Extremity: Present: no calf tenderness, leg pain - on palpation of her larios anf thigh Assessment/Plan - Problems/Diagnosis (1) Cellulitis Problem: Resolved Qualifiers: Site of cellulitis of extremity: lower extremity Laterality: left Narrative: her WBC is back up again. will get ESR, CRP and get MRI of her LLE to rule out any beginning osteomyletis. Pending results will contact I.D. in [facility]. (2) Diabetes mellitus Problem: Chronic Qualifiers: Diabetes mellitus type: type 2 Diabetes mellitus complication status: without complication Diabetes mellitus senior living insulin use: without supervisor long goods use Qualified Code(s): E11.9 - Type 2 diabetes mellitus without complications
[2016-08-07] MEDS: PENICILLIN V POTASSIUM 250 MG/5 ML PO SCH ×4 (00:53→16:35)
[2016-08-07] MEDS: HEPARIN SODIUM,PORCINE 5,000 UNITS/ML VIAL SC SCH ×3 (00:53→21:35)
[2016-08-07 05:50] LABS: Hematocrit 36.2 % (37.0-47.0); Hemoglobin 11.7 gm/dL (12.5-16.0); Mean Cell Volume 81.5 fl (78-100); Mean Corpuscular Hemoglobin 26.4 pg (27-31); Mean Corpuscular Hgb Conc 32.3 g/dl (32-36); Mean Platelet Volume 8.8 fl (6.0-9.5); Neutrophil # 10.8 K/mm3 (1.3-6.0); Neutrophil % 73.6 % (42-75.0); Platelet Count 333 K/mm3 (150-450); Red Blood Count 4.44 M/mm3 (4.2-5.4); Red Cell Distribution Width 13.1 % (11.5-14.0); White Blood Count 14.6 K/mm3 (4.0-10.5)
[2016-08-07] MEDS: INSULIN LISPRO 100 UNITS/ML VIAL SC SCH ×4 (06:43→21:27)
[2016-08-07] MEDS: CLINDAMYCIN HCL 150 MG CAPSULE PO SCH ×3 (08:54→17:11)
[2016-08-07] MEDS: INSULIN DETEMIR 100 UNITS/ML VIAL SC SCH ×2 (08:55→21:29)
[2016-08-07] MEDS: MUPIROCIN 22 APPL TUBE TP SCH (08:57)
--- NOTE | 2016-08-07 09:18 | PN ---
Progeskarli Note - Interim Narrative: 08/07/16 09:18 Will await result of 3 phase bone scan before talking to I.D. in [facility].
--- NOTE | 2016-08-07 16:25 | PN ---
Subjective - Date and Time Seen Date: 08/07/16 Time: 16:21 Subjective Narrative: Patient is afebrile. WBC has stopped going up at 14.6. MRi showed no OM , 6 mm abscess , thigh ? Objective - Review of Systems Generalized/Overall Review: Denies: Chills, Fever EENTM: Reports: No Symptoms Reported Respiratory: Denies: Cough, Shortness of Breath Cardiac: Denies: Chest Pain, Edema, Palpitations Abdominal: Denies: Nausea, Vomiting Genitourinary Symptoms: Denies: Urgency, Frequency Musculoskeletal Complaints: Denies: Joint Pain Skin: Reports: Other - no new lesions - Vitals Vitals: Last Vital Signs Temp 36.6 C 08/07/16 16:05 Pulse 76 08/07/16 16:05 Resp 20 08/07/16 16:05 BP 98/61 08/07/16 16:05 Pulse Ox 98 08/07/16 16:05 - Abnormal Lab Findings Abnormal Lab Findings: Abnormal Lab Results 08/07/16 Range/Units 05:42 WBC 14.6 H (4.0-10.5) K/mm3 Hgb 11.7 L (12.5-16.0) gm/dL Hct 36.2 L (37.0-47.0) % MCH 26.4 L (27-31) pg Immature Gran % (Auto) 4.00 H (0.001-0.429) % Immature Gran # (Auto) 0.58 H (0.000-0.0310) K/mm3 Lymphocytes % 11.6 L (20-51) % Eosinophils % 3.6 H (0.0-3.0) % Neutrophils # 10.8 H (1.3-6.0) K/mm3 Assessment/Plan - Problems/Diagnosis (1) Cellulitis Problem: Resolved Qualifiers: Site of cellulitis of extremity: lower extremity Laterality: left Narrative: Had 5 days of IV Vanco and ZAosyn since admission (07/30), then IV Pen G and Clinda x 1 day then oral PenV and Clinda due to infiltration of line and difficulty of IV reinsertion. Discussed caase with Camila Ovalle In [facility] - he recommends doing US and if negative , may discharge patient on Amoxicillin/ Clinda x 1 more week but follow up closely due to her h/o necrotizing fasciitis. (2) Diabetes mellitus Problem: Chronic Qualifiers: Diabetes mellitus type: type 2 Diabetes mellitus complication status: without complication Diabetes mellitus assisted insulin use: without termination clerk use Qualified Code(s): E11.9 - Type 2 diabetes mellitus without complications
[2016-08-07] MEDS: AMOX TR/POTASSIUM CLAVULANATE 875 MG TABLET PO SCH (21:32)
[2016-08-08 05:24] LABS: Hematocrit 36.5 % (37.0-47.0); Hemoglobin 11.8 gm/dL (12.5-16.0); Mean Cell Volume 80.9 fl (78-100); Mean Corpuscular Hemoglobin 26.2 pg (27-31); Mean Corpuscular Hgb Conc 32.3 g/dl (32-36); Mean Platelet Volume 8.7 fl (6.0-9.5); Neutrophil # 10.3 K/mm3 (1.3-6.0); Neutrophil % 73.4 % (42-75.0); Platelet Count 310 K/mm3 (150-450); Red Blood Count 4.51 M/mm3 (4.2-5.4); Red Cell Distribution Width 13.2 % (11.5-14.0)
[2016-08-08] MEDS: INSULIN LISPRO 100 UNITS/ML VIAL SC SCH ×2 (07:08→11:05)
[2016-08-08] MEDS: INSULIN DETEMIR 100 UNITS/ML VIAL SC SCH (09:04)
[2016-08-08] MEDS: HEPARIN SODIUM,PORCINE 5,000 UNITS/ML VIAL SC SCH (09:07)
[2016-08-08] MEDS: CLINDAMYCIN HCL 150 MG CAPSULE PO SCH ×2 (09:08→14:02)
[2016-08-08] MEDS: AMOX TR/POTASSIUM CLAVULANATE 875 MG TABLET PO SCH (09:08)
[2016-08-08 10:42] VITALS: BP 108/75
--- NOTE | 2016-08-08 11:51 | DS ---
(1) Cellulitis Diagnosis(s): will continue with Augmentin and Clindamycin x 1 week. Problem: Resolved Qualifiers: Site of cellulitis of extremity: lower extremity Laterality: left (2) Diabetes mellitus Problem: Chronic Qualifiers: Diabetes mellitus type: type 2 Diabetes mellitus complication status: without complication Diabetes mellitus penitentiary insulin use: without penitentiary use Qualified Code(s): E11.9 - Type 2 diabetes mellitus without complications Description of Stay: Lora Lyles is a 50-yr old [place] pt, whose PCP is Dr. Deepti Llamas, in [facility]. Her PMH involves DM II, Neuropathy & Necrotizing Fasciitis. Pt reported that 2 days [employer] [facility], she became ill with 'flu like symptoms' of: n/v, headaches, abd pain and diarrhea. She was unsure if she had any fevers as she never checked her temperature, but said she had chills. 1 day [employer] [facility], she noticed a scraped area on her LT larios which was also itchy. She was uncertain how she sustained that open area. She applied Bacitracin ointment on it but that seemed to worsen the itching. On the morning of admission 07/30/2016 , she noticed that the area around the scab was very red, hot and tender to touch. She then chose to come to the [facility] ER . During evaluation in the ER, the UA and CXR findings were unremarkable. However, she was found to be febrile with a temp. of 38.0. Her laboratory studies showed she an elevated WBC of 24,400 with a left shift and a lactic acid of 2.1 prompting an inpatient admission for clinical signs of Sepsis. She was started on IV Vanco and Zosyn wiuth her recent history of necrotizing fasciitis necessesitating extensive debrideent and skin grafting. Her WBC count went down to 10.9 Her Culture grew strep pyogenes. Her antibitoic was changed to IV Penicillin and Clindamycin then changed to oral. Her WBC started to go up again to 14.9 and MRI was done and it ddi not show osteomyelitis but a possible 6 mm abscess in her thigh. Over the phone consultation was done with Camila Ovalle, [facility] and he recommended US of her thigh. If negative she can be discharged on oral amoxicillin and clind x 1 more week but needs close follow up due to her history of necrotizing fasciitis. Procedures Performed: none Discharge Disposition: Home self care Disposition: Home self-care Condition: Fair Discharge Activity: Activity as tolerated Discharge Diet: Consistent carbs Additional Patient Instructions (free text): Follow up with me on Friday . Prescriptions (Any new or edited meds): Acetaminophen [Tylenol] 650 mg PO Q6H PRN #30 tablet PRN Reason: Mild Pain Amox Tr/Potassium Clavulanate [Augmentin 875-125 Tablet] 875 mg PO BID #14 tablet Clindamycin HCl [Cleocin] 600 mg PO TID #21 capsule Complete Home Medications List: Complete Home Medication List: Insulin Detemir [Levemir Flexpen] 50 unit SQ BID 07/18/14 Insulin NPH Hum/Reg Insulin Hm [Humulin 70-30] 10 unit SC AC 11/02/15 Acetaminophen [Tylenol] 650 mg PO Q6H PRN #30 tablet 08/08/16 Amox Tr/Potassium Clavulanate [Augmentin 875-125 Tablet] 875 mg PO BID #14 tablet 08/08/16 Clindamycin HCl [Cleocin] 600 mg PO TID #21 capsule 08/08/16 Amb Orders for Discharge: Basic Metabolic Panel Time Frame: 08/12/16, Location: Determined By Patient CBC Time Frame: 08/12/16, Location: Determined By Patient CRP Time Frame: 08/12/16, Location: Determined By Patient Erythrocyte Sedimentation Rate Time Frame: 08/12/16, Location: Determined By Patient
== END 2016-08-08 15:10 | disposition home or self-care (01) | DRG 872 ==
LOC: ER 17:00 → MS 19:59
PROVIDERS: ADMIT Nurse Practitioner; ATTEND Internal Medicine
PROC: 4A033R1 Measurement of Arterial Saturation, Peripheral, Percutaneous Approach (ICD-10-PCS; principal; 2016-07-30)
DX: A41.9 Sepsis, unspecified organism (principal); L03.116 Cellulitis of left lower limb; T80.818A Extravasation of other vesicant agent, initial encounter; E11.40 Type 2 diabetes mellitus with diabetic neuropathy, unspecified; L01.03 Bullous impetigo; Z79.4 Long term (current) use of insulin; Z85.828 Personal history of other malignant neoplasm of skin; Z87.891 Personal history of nicotine dependence
CPT/HCPCS: 36415; 36600; 71010; 73552; 73590; 73720; 76882; 78315; 80048; 80053; 80202; 81001; 82009; 82550; 82803; 83605; 85007; 85025; 85652; 86140; 87040; 87070; 87077; 87186; 93971; 96365; 99284; A9503

== ENCOUNTER 2017-03-31 07:04 | Emergency (ER) | payer MEDICAID ==
[2017-03-31] MEDS ORDERED: HYDROcodone/ACETAMINOPHEN 1 EACH TABLET PO ONE (07:27)
[2017-03-31] MEDS ORDERED: HYDROcodone/ACETAMINOPHEN 1 EACH TABLET ONE (07:29)
--- NOTE | 2017-03-31 07:34 | ERNOTE ---
<Girish Boles - Last Filed: 03/31/17 08:13> ENT HPI Presenting Symptoms: eye pain Time Seen by Provider: 03/31/17 07:13 Source: patient Exam Limitations: no limitations - Immun/Allergies/Home Medications Immunizations: IMMUNIZATION HX Immunizations Up to Date Yes History of Influenza Vaccine No Hx Pneumococcal Vaccination More Information Required Allergies/Adverse Reactions: Allergies Allergy/AdvReac Type Severity Reaction Status Date / Time No Known Allergies Allergy Verified 03/31/17 07:19 Home Medications: HOME MEDICATIONS Insulin Detemir [Levemir Flexpen] 50 unit SQ BID 07/18/14 [Last Taken 07/30/16] Insulin NPH Hum/Reg Insulin Hm [Humulin 70-30] 10 unit SC AC 11/02/15 [Last Taken 07/30/16] Acetaminophen [Tylenol] 650 mg PO Q6H PRN #30 tablet 08/08/16 [Last Taken Unknown] - History of Present Illness Narrative: This is a 51-year-old female who presents to the emergency department at 7 AM on Friday complaining of right eye pain. She says the pain has been going on since Friday afternoon. It seems to gradually gotten worse. The patient denies any recent trauma. She denies any fever. She denies any change in her vision. The patient says that the eye was initially sore but now is starting to involve the tissues around the eyeball. The patient has no nausea vomiting headache or symptoms such as chest pain shortness of breath. She says it hurts when she looks at the [place] as well as when she looks laterally. Review of Systems - Review of Systems Constitutional: Present: no symptoms reported EYE: Present: see HPI, eye pain ENT: Present: other - patient has pain around her eye in the orbit area. Respiratory: Present: no symptoms reported Cardiology: Present: no symptoms reported Gastrointestinal/Abdominal: Present: no symptoms reported Genitourinary: Present: no symptoms reported Musculoskeletal: Present: no symptoms reported Skin: Present: no symptoms reported Neurological: Present: no symptoms reported Endocrine: Present: no symptoms reported Hematologic/Lymphatic: Present: no symptoms reported Psych: Present: no symptoms reported All Other Systems: All systems neg except as marked - Patient's Past Medical History Patient History - Medical: Diabetes Type 1, Diabetes Type 2, Other Patient History - Cancer: Skin Patient History - Surgical Procedures: Appendectomy, , EGD, Other Patient History - Other: None - Family History Mother Family History - Medical: , Diabetes Type 2 Father Family History - Medical: , Other - Social History Living Situations: home Psych History: No pertinent hx Alcohol Use: none Drug Use: none - Immunizations Immunizations Up to Date: Yes Hx Pneumococcal Vaccination: More Information Required to Determine History of Influenza Vaccine: No Physical Exam - Physical Exam General Appearance: Present: wd/wn, alert, other - patient is in significant pain distress. She is tearful. She is covering her eyes. Head Exam: Present: normal inspection, no evidence of injury Eye Exam: Normal inspection: bilateral, PERRL: bilateral, EOMI: bilateral Ears, Nose, Throat: Present: other - patient has exquisite tenderness the entire orbit. There is no erythema of this again. Neck: Present: normal inspection, nontender Respiratory: Present: no respiratory distress, normal breath sounds, no accessory muscle use, lungs clear Cardiovascular/Chest: Present: regular rate, rhythm, no murmur, normal peripheral pulses Gastrointestinal/Abdominal: Present: normal bowel sounds, nontender, nondistended, soft, no organomegaly Back Exam: Present: normal inspection, normal range of motion, no CVA tenderness Extremity Exam: Present: normal inspection, non-tender, normal range of motion, no edema Neurological Exam: Present: alert, oriented, normal mood/affect, no motor/ sensory deficits Skin Exam: Present: normal color, warm/dry Lymphatic Exam: Present: no adenopathy ED Progress - Results and Orders Patient's Lab Results:: I have reviewed the patient's lab results. - Vital Signs Patient's Vital Signs:: I have reviewed the patient's vital signs. Vital Signs: Vital Signs 03/31/17 07:16 Temperature 35.8 C L Pulse Rate 77 Respiratory 12 Rate Blood Pressure 118/81 O2 Sat by Pulse 99 Oximetry - Progress/Reassessment Chief Complaint: Eye Injury/Trauma - Transfer of Care Physician Sign Out: Girish Boles Brief History: Right eye pain since friday. Slightly worse. No true vision impairment Receiving Physician: Marty Belcher Pending Results: Pain-control Expected Disposition: Transfer Plan - Plan Plan: The patient's eyes were examined with slit lamp. She has diffuse pain not just on the surface. I did not examine with fluorescein. The emergency department does not have a Jesús-Pen. I have concern about glaucoma. This patient is going to need to be evaluated by an research associate quality control qc. I'm attempting to see if the research associate quality control qc within office here in our hospital will be available today. If not the patient will need to be transferred. The research associate quality control qc present in the hospital, with an office in the hospital is unreachable by pager. His office is scheduled to open at 9 AM. I'm going to endorse the patient over to my colleague Dr. Patel who is going to check in with the research associate quality control qc at 9:00. This patient really does need to see someone. If he is unable to get into an research associate quality control qc she needs to be transferred so she can see an research associate quality control qc and have pressures measured Departure Clinical Impression: Pain, eye, right - Departure Disposition: Other home health Condition: Good Instructions: Blurred Vision Additional Instructions: Go directly to Dr. Shi's office Referrals: Juanita Shi, OD [Non Staff Physicians] - <Marty Belcher - Last Filed: 03/31/17 09:47> ENT HPI - Immun/Allergies/Home Medications Immunizations: IMMUNIZATION HX Immunizations Up to Date Yes History of Influenza Vaccine No Hx Pneumococcal Vaccination More Information Required ED Progress - Vital Signs Vital Signs: Vital Signs 03/31/17 03/31/17 03/31/17 07:16 08:37 09:14 Temperature 35.8 C L Pulse Rate 77 88 87 Respiratory 12 12 12 Rate Blood Pressure 118/81 120/80 118/81 O2 Sat by Pulse 99 99 99 Oximetry - CT/Ultrasound CT/Ultrasound Narrative: Despite numerous efforts to try to raise Dr. Pb Menard we were not able to raise him. I did talk to Dr. Juanita Shi and she will see the patient immediately in clinic. Plan - Plan Plan: Despite numerous efforts to try to raise Dr. Pb Menard we were not able to raise him. I did talk to Dr. Juanita Shi and she will see the patient immediately in clinic.
[2017-03-31 09:14] VITALS: BP 118/81
== END 2017-03-31 09:53 | disposition home health service (06) ==
LOC: ER 07:04
DX: H57.11 Ocular pain, right eye (principal); Z85.828 Personal history of other malignant neoplasm of skin